=== PATIENT | male | born 1950 | race Caucasian/White ===

== ENCOUNTER 2016-12-26 17:00 | Emergency (ER) | payer OTHER ==
[2016-12-26 17:50] VITALS: BP 142/106; PULSE 86; RESP 16; TEMP 97.5; O2SAT 94
--- NOTE | 2016-12-26 17:53 | EDPHY ---
H & P Stated Complaint: blood in stool abd cramping Time Seen by Provider: 12/26/16 17:33 HPI/ROS: CHIEF COMPLAINT: Rectal bleeding HISTORY OF PRESENT ILLNESS: The patient is a 66-year-old man who comes to the emergency department complaining of rectal bleeding. He states that this afternoon he had a episode of stool covered with red blood. He then had 1 more episode about half an hour later. He then had diarrhea about 30 minutes ago but it was nonbloody. He states that he has chronic abdominal cramping and diarrheal symptoms. He has not been diagnosed with any GI disease but simply manages his symptoms at home. He states that he has had the symptoms ever since he had radiation for his prostate. He did have a colonoscopy 4 years ago that was negative. No fevers. No abdominal pain. No vomiting. No chest pain. REVIEW OF SYSTEMS: Constitutional: denies: chills, fever, recent illness, recent injury EENTM: denies: blurred vision, double vision, nose congestion Respiratory: denies: cough, shortness of breath Cardiac: denies: chest pain, irregular heart rate, lightheadedness, palpitations Gastrointestinal/Abdominal: See HPI Genitourinary: denies: dysuria, frequency, hematuria, pain Musculoskeletal: denies: joint pain, muscle pain Skin: denies: lesions, rash, jaundice, bruising Neurological: denies: headache, numbness, paresthesia, tingling, dizziness, weakness Hematologic/Lymphatic: denies: blood clots, easy bleeding, easy bruising Immunologic/allergic: denies: HIV/AIDS, transplant EXAM: GENERAL: Well-appearing, well-nourished and in no acute distress. HEAD: Atraumatic, normocephalic. EYES: Pupils equal round and reactive to light, extraocular movements intact, sclera anicteric, conjunctiva are normal. ENT: TMs normal, nares patent, oropharynx clear without exudates. Moist mucous membranes. NECK: Normal range of motion, supple without lymphadenopathy or JVD. LUNGS: Breath sounds clear to auscultation bilaterally and equal. No wheezes rales or rhonchi. HEART: Regular rate and rhythm without murmurs, rubs or gallops. ABDOMEN: Soft, nontender, normoactive bowel sounds. No guarding, no rebound. No masses appreciated. : Rectum evaluated with proctoscope. Internal bleeding hemorrhoid visible. Bleeding controlled. Stool sample taken and nonbloody. BACK: No CVA tenderness, no spinal tenderness, step-offs or deformities EXTREMITIES: Normal range of motion, no pitting or edema. No clubbing or cyanosis. NEUROLOGICAL: Cranial nerves II through XII grossly intact. Normal speech, normal gait. 5/5 strength, normal movement in all extremities, normal sensation PSYCH: Normal mood, normal affect. SKIN: Warm, dry, normal turgor, no visible rashes or lesions. Source: Patient Exam Limitations: No limitations - Personal History Current Tetanus/Diphtheria Vaccine: Yes - Medical/Surgical History Hx Asthma: No Hx Chronic Respiratory Disease: No Hx Diabetes: No Hx Cardiac Disease: No Hx Renal Disease: No Hx Cirrhosis: No Hx Alcoholism: No Hx HIV/AIDS: No Hx Splenectomy or Spleen Trauma: No Other PMH: echolagia/prostate cancer - Family History Significant Family History: No pertinent family hx - Social History Smoking Status: Never smoked Alcohol Use: Sober Drug Use: None Constitutional: Initial Vital Signs Temperature (C) 36.8 C 12/26/16 17:13 Heart Rate 85 12/26/16 17:13 Respiratory Rate 18 12/26/16 17:13 Blood Pressure 118/97 H 12/26/16 17:13 O2 Sat (%) 96 12/26/16 17:13 O2 Delivery Mode Room Air Allergies/Adverse Reactions: No Known Allergies Allergy (Unverified 12/26/16 17:12) Home Medications: Medication Instructions Recorded Ambien 12/26/16 Zocor 12/26/16 Medical Decision Making ED Course/Re-evaluation: Patient has hemorrhoids visible on proctoscope. we discussed treatment for hemorrhoids and he will follow up with GI. He has it no other colonoscopy planned in March. We discussed indications for returning to the emergency department. He is not lightheaded or dizzy. No signs of anemia. Normal vital signs. Differential Diagnosis: Partial list of the Differential diagnosis considered include but were not limited to; hemorrhoids, upper GI bleed and although unlikely based on the history and physical exam, I also considered diverticulitis, appendicitis, volvulus, ischemia. I discussed these differential diagnoses and the plan with the patient as well as the usual and expected course. The patient understands that the diagnosis is provisional and that in medicine we are not always correct and that further workup is often warranted. Usual and customary warnings were given. All of the patient's questions were answered. The patient was instructed to return to the emergency department should the symptoms at all worsen or return, otherwise to followup with the physician as we discussed. Departure - Departure Disposition: Home, Routine, Self-Care Clinical Impression: Hemorrhoids Qualifiers: Hemorrhoid type: unspecified Qualified Code(s): K64.9 - Unspecified hemorrhoids Condition: Fair Instructions: Hemorrhoids (ED) Additional Instructions: Use hydrocortisone cream and hemorrhoid suppositories as discussed. Referrals: IRINA DUQUE [Primary Care Provider] - As per Instructions
== END 2016-12-26 18:07 | disposition home or self-care (01) ==
DX: K64.8 Other hemorrhoids (principal)